=== PATIENT | female | born 1980 | race African-American/Black ===

== ENCOUNTER 2016-10-24 15:32 | Emergency (ER) | payer SELFPAY ==
[2016-10-24 15:41] VITALS: BP 118/74; BMI 44.1
--- NOTE | 2016-10-24 15:46 | DR.GENAD ---
HPI - PCP Primary Care Physician: nfd - Complaint/Symptoms Chief Complaint Doctors Comments: LBP onset when awakening last sunday. No trauma, Hx of same and had relief until last week from surgery. Chief Complaint:: patient stated last sunday her lower back started hurting that radiates down her left leg. she had surgery on her back last january in [place] for the same thing. she went to [facility] sunday for the pain. - Nurses notes reviewed Nurses Notes Review: Yes - Source History Provided: Patient - Mode of Arrival Mode of Arrival: Ambulatory - Timing Onset of Chief Complaint: 10/17/16 Came on: Gradually - Duration How lon Duration: Days - Location Location: lower back - Severity Severity: Moderate - Modifying Factors Worsens:: movement - Associated Signs and Symptoms Associated Signs and Symptoms: pain radiating to leg. - Other History Other History: back surgery PMH - PMH Past Medical History: No Past Surgical History: Yes Surgical History: Appendectomy, , Cholecystectomy, [employer] Surgery, Ortho Surgery - Family History History of Family Medical Conditions: No - Social History Does patient currently use any type of tobacco product: No Have you used tobacco products in the last 12 months: No Type of Tobacco Use: None Does any household member use tobacco: No Alcohol Use: None Do you use any recreational Drugs:: No Lives With: Family Lives Where: Home - infectious screening In the last 2 months have you had wt loss of >10#?: NO Have you had fever, night sweats or hemotysis?: No Have you traveled outside the country in the last 6 months?: No Isolation: Standard ROS - Review of Systems Constitutional: No Symptoms Reported Eyes: No Symptoms Reported ENTM: No Symptoms Reported Respiratoy: No Symptoms Reported Cardiovascular: No Symptoms Reported Gastrointestinal/Abdominal: No Symptoms Reported Genitourinary: No Symptoms Reported Neurological: No Symptoms Reported Musculoskeletal: Back (pain), Leg (left leg pain) Integumentary: No Symptoms Reported Hematologic/Lymphatic: No Symptoms Reported Endocrine: No Symptoms Reported Psychiatric: No Symptoms Reported PE - Vital Signs Vitals: Temperature 98.9 F Pulse Rate 102 Respiratory Rate 16 Blood Pressure 118/74 O2 Sat by Pulse Oximetry 96 - General Limitations: No Limitations General Appearance: Alert, In No Apparent Distress - Head Head Exam: Normal Inspection - Eyes Eye exam: Normal Appearance, EOMI. negative: Scleral Icterus, Conjunctival Injection - ENT ENT Exam: Normal Exam External Ear Exam: Normal External Inspection Mouth Exam: Normal Inspection - Neck Neck Exam: Normal Inspection, Full ROM, Trachea Midline - Respiratory Respiratory Exam: negative: Accessory Muscle Use, Respiratory Distress - Extremities Extremities Exam: negative: Full ROM (left leg positive leg lift), Tenderness - Back Back Exam: (L) Straight Leg Raise - Neurologic Neurological Exam: Alert, Oriented X3, CN II-XII Intact - Psychiatric Psychiatric Exam: Depressed - Skin Skin Exam: Intact, Normal Color - Diagnosis Discharge Problem: Sciatica of left side - Discharge Plan Condition: Stable Prescriptions: Hydrocodone-Acetaminophen [Lorcet Plus 7.5-325 mg] 1 tab PO Q6H PRN #12 tab PRN Reason: Pain - Follow ups/Referrals Follow ups/Referrals: [facility],None [Primary Care Provider] - 3 days - Instructions
[2016-10-24] MEDS ORDERED: DEMEROL INJ IM ONE (15:56)
[2016-10-24] MEDS ORDERED: PHENERGAN INJ 25 MG IM ONE (15:58)
[2016-10-24] MEDS ORDERED: DEMEROL INJ ONE (15:59)
[2016-10-24] MEDS ORDERED: PHENERGAN INJ 25 MG ONE (15:59)
== END 2016-10-24 16:37 | disposition home or self-care (01) ==
LOC: ER 15:44
DX: M54.32 Sciatica, left side (principal)
CPT/HCPCS: 96372; 99282; J2175; J2550